=== PATIENT | male | born 1990 | race Caucasian/White ===

== ENCOUNTER 2017-11-22 15:26 | Emergency (ER) | payer OTHER ==
[~2017-11-22] VITALS: Ht 167.6 cm; Wt 81.7 kg
[~2017-11-22 15:26] MED LIST: ABILIFY30 MG PO; CELEXA40 MG PO; FLEXERIL PO; IBUPROFEN 200200 M1; IBUPROFEN 600600 M1 PO; IBUPROFEN 800800 M1 PO; NORCO 5-325 TA1 EACH PO; NORFLEX100 MG PO; STRATTERA60 MG PO; ZOLOFT50 MG PO
[2017-11-22] MEDS ORDERED: LIORESAL 10 MG10 MG PO (16:35)
[2017-11-22] MEDS ORDERED: LIDODERM1 EACH TOP (16:35)
[2017-11-22] MEDS ORDERED: MEDROLDOSEPACK PO (16:35)
[2017-11-22] MEDS ORDERED: MOBIC15 MG PO (16:35)
== END 2017-11-22 17:19 | disposition home or self-care (01) ==
LOC: ER 15:26
DX: S39.012A Strain of muscle, fascia and tendon of lower back, initial encounter (principal); J45.909 Unspecified asthma, uncomplicated; F32.9 Major depressive disorder, single episode, unspecified; F41.9 Anxiety disorder, unspecified; Z88.2 Allergy status to sulfonamides; X58.XXXA Exposure to other specified factors, initial encounter; Y93.89 Activity, other specified; Y92.89 Other specified places as the place of occurrence of the external cause; Y99.8 Other external cause status

== ENCOUNTER 2017-11-27 16:43 | Emergency (ER) | payer OTHER ==
[~2017-11-27] VITALS: Ht 167.6 cm; Wt 79.4 kg
[~2017-11-27 16:43] MED LIST changes: +LIDODERM1 EACH TOP; +LIORESAL 10 MG10 MG PO; +MEDROLDOSEPACK PO; +MOBIC15 MG PO
[2017-11-27] MEDS ORDERED: PREDNISONE 20 M20 MG PO (17:02)
[2017-11-27] MEDS ORDERED: HYDROCODONE-AP1 EAC6 PO (17:02)
== END 2017-11-27 17:14 | disposition home or self-care (01) ==
LOC: ER 16:43
DX: M51.26 Other intervertebral disc displacement, lumbar region (principal); J45.909 Unspecified asthma, uncomplicated; F17.210 Nicotine dependence, cigarettes, uncomplicated; Z88.2 Allergy status to sulfonamides; Z88.8 Allergy status to other drugs, medicaments and biological substances